=== PATIENT | male | born 1995 | race Caucasian/White ===

== ENCOUNTER 2019-04-13 15:00 | Emergency (ER) | payer MEDICAID ==
[2019-04-13] MEDS: AZITHROMYCIN 250 MG TAB PO (16:05)
[2019-04-13] MEDS: CEFTRIAXONE 250 MG INJ IM (16:08)
[2019-04-13 17:39] LABS: HIV 1&2 ANTIBODY NEGATIVE (NEGATIVE)
== END 2019-04-13 16:26 | disposition home or self-care (01) ==
LOC: E/R 15:00
DX: J02.9 Acute pharyngitis, unspecified (principal)
CPT/HCPCS: 86703; 96372; 99284-25